=== PATIENT | male | born 2000 | race Asian ===

== ENCOUNTER 2019-03-11 14:51 | Emergency (ER) | payer OTHER ==
--- NOTE | 2019-03-11 16:37 | ED ---
Abdominal Pain/Male - HPI Summary HPI Summary: Pt is a 19 y/o M presenting to the ED with a chief complaint of LLQ abd pain first onset about 2 days ago that is worsened with movement. He reports some nausea. He denies diarrhea, constipation, fevers, or chills. Hx appendectomy when he was 8, and he denies hx of diverticulitis. - History of Current Complaint Chief Complaint: EDAbdPain Stated Complaint: LT SIDE ABD PAIN PER PT Time Seen by Provider: 03/11/19 16:17 Hx Obtained From: Patient Onset/Duration: Gradual Onset, Lasting Days, Still Present Timing: Constant, Lasting Days Severity Initially: Moderate Severity Currently: Moderate Pain Intensity: 7 Pain Scale Used: 0-10 Numeric Location: Discrete At: LLQ Radiates: No Aggravating Factor(s): Movement Alleviating Factor(s): Nothing Associated Signs And Symptoms: Negative: Fever, Constipation, Diarrhea - Allergies/Home Medications Allergies/Adverse Reactions: Allergies Allergy/AdvReac Type Severity Reaction Status Date / Time No Known Allergies Allergy Verified 03/11/19 16:19 PMH/Surg Hx/FS Hx/Imm Hx Previously Healthy: Yes Endocrine/Hematology History: Denies: Hx Diabetes GI History: Denies: Hx Diverticulosis Infectious Disease History: No Infectious Disease History: Denies: Traveled Outside the [place] in Last 30 Days - Family History Known Family History: Negative: Renal Disease - Social History Alcohol Use: Weekly Alcohol Amount: 2-3 times weekly Hx Substance Use: No Substance Use Type: Reports: None Hx Tobacco Use: No Smoking Status (MU): Never Smoked Tobacco Review of Systems Negative: Fever, Chills Positive: Abdominal Pain, Nausea. Negative: Diarrhea, Other - constipation All Other Systems Reviewed And Are Negative: Yes Physical Exam - Summary Physical Exam Summary: GENERAL: Patient is a well-developed and nourished male who is lying comfortable in the stretcher. Patient is not in any acute respiratory distress. HEAD AND FACE: Normocephalic EYES: PERRLA, EOMI x 2. EARS: Hearing grossly intact. MOUTH: Oropharynx within normal limits. NECK: Supple, trachea is midline, no adenopathy, no JVD, no carotid bruit. CHEST: Symmetric, no tenderness at palpation LUNGS: Clear to auscultation bilaterally. No wheezing or crackles. CVS: Regular rate and rhythm, S1 and S2 present, no murmurs or gallops appreciated. ABDOMEN: Tender to palpation in the LUQ and left mid quadrant. Bowel sounds are normal. No abnormal abdominal pulsations. No masses or hernias. EXTREMITIES: Full ROM in all major joints, no edema, no cyanosis or clubbing. NEURO: Alert and oriented x 3. No acute neurological deficits. Speech is normal and follows commands. SKIN: Dry and warm Triage Information Reviewed: Yes Vital Signs On Initial Exam: Initial Vitals Temp Pulse Resp BP Pulse Ox 97.4 F 74 18 148/107 97 03/11/19 14:58 03/11/19 14:58 03/11/19 14:58 03/11/19 14:58 03/11/19 14:58 Vital Signs Reviewed: Yes Diagnostics - Vital Signs Vital Signs Temp Pulse Resp BP Pulse Ox 03/11/19 16:21 72 156/85 98 03/11/19 16:20 87 98 03/11/19 14:58 97.4 F 74 18 148/107 97 - Laboratory Result Diagrams: 03/11/19 16:25 03/11/19 16:25 Lab Statement: Any lab studies that have been ordered have been reviewed, and results considered in the medical decision making process. - CT CT abd/pelv CT Interpretation Completed By: Radiologist Summary of CT Findings: Appearance is consistent with mild distal colitis as well as questionable distention of the mesenteric root compatible with a "comb sign". An infectious or inflammatory etiology is considered most likely. ED physician has reviewed this report. Re-Evaluation - Re-Evaluation 1st re-eval Re-Evaluation Time: 18:22 Change: Improved Comment: I spoke with the patient who states he is feeling better and is agreeable with going home. Abdominal Pain Male Course/Dx - Course Course Of Treatment: Pt is a 19 y/o M presenting to the ED with a chief complaint of abd pain in her LLQ that first came on 2 days ago. He reports some nausea. He denies diarrhea, constipation, fevers, or chills. Hx appendectomy when he was 8, and he denies hx of diverticulitis. On exam, the pt is tender to palpation in the LUQ and left mid quadrant. There are no masses or hernias. Pt's lab work is normal. CT of abd/pelv shows: Appearance is consistent with mild distal colitis as well as questionable distention of the mesenteric root compatible with a "comb sign". An infectious or inflammatory etiology is considered most likely. The pt will be d/c'ed with a dx of Colitis, given his first dose of Abx in the ED, and be sent home with prescriptions. I discussed results with patient, and he reports feeling better. He is hemodynamically stable and safe for discharge. Strict return precautions given and he will otherwise follow up with his PCP and his GI doctor. - Diagnoses Provider Diagnoses: Colitis Discharge - Sign-Out/Discharge Documenting (check all that apply): Patient Departure Patient Received Moderate/Deep Sedation with Procedure: No - Discharge Plan Condition: Stable Disposition: HOME Prescriptions: Ciprofloxacin TAB* [Cipro 500 MG TAB*] 500 mg PO BID 7 Days #14 tab Ibuprofen TAB* [Motrin TAB* 800 MG] 800 mg PO Q8H PRN #20 tab PRN Reason: Pain metroNIDAZOLE [Flagyl 500 MG TAB] 500 mg PO TID #21 tab Referrals: [facility] [Outside] Jaime Vallecillo MD [Medical Doctor] - Additional Instructions: Take your prescribed medications as instructed. Please follow up with your primary care provider within the next 1-3 days. Also , follow up with Dr. Vallecillo of gastroenterology within the next 1-3 days. Return to the emergency department with any new or worsening symptoms. - Billing Disposition and Condition Condition: STABLE Disposition: Home - Attestation Statements Document Initiated by Edie: Yes Documenting Scribe: Rosa Schaffer Provider For Whom Edie is Documenting (Include Credential): Blake Putnam MD. Scribe Attestation: Rosa Henry scribed for Blake Putnam MD. on 03/11/19 at 2005. Scribe Documentation Reviewed: Yes Provider Attestation: The documentation as recorded by the Rosa laureano accurately reflects the service I personally performed and the decisions made by , Martha Putnam MD. Status of Scribe Document: Viewed
[2019-03-11 16:38] LABS: ABS Eosinophils 0.3 10^3/ul (0-0.6); ABS Lymphocytes 1.4 10^3/ul (1.0-4.8); ABS Monocytes 0.5 10^3/ul (0-0.8); ABS Neutrophils 4.5 10^3/ul (1.5-7.7); Eosinophil % 4.1 %; Hematocrit 46 % (42-52); Hemoglobin 15.8 g/dL (14.0-18.0); Lymphocyte % 21.2 %; Mean Corpuscular HGB Conc 34 g/dL (31-36); Mean Corpuscular Hemoglobin 30 pg (27-31); Mean Corpuscular Volume 88 fL (80-94); Mean Platelet Volume 7.7 fL (7.4-10.4); Nucleated Red Blood Cells % 0.1; Platelet Count 232 10^3/uL (150-450); Red Blood Count 5.26 10^6 /uL (4.18-5.48); Red Cell Distribution Width 13 % (10.5-15); White Blood Count 6.7 10^3/uL (3.5-10.8)
[2019-03-11] MEDS ORDERED: NS 0.9% 1000 ML** 1,000 ML IV ONE (16:40)
[2019-03-11] MEDS ORDERED: Ketorolac INJ* 30 MG/ML 1 ML VIAL IV PUSH ONE (16:40)
[2019-03-11] MEDS ORDERED: Ondansetron INJ* 2 MG/ML VIAL IV ONE (16:40)
[2019-03-11 16:46] LABS: Urine Appearance Clear; Urine Bilirubin Negative (Negative); Urine Blood Negative (Negative); Urine Color Yellow; Urine Glucose Negative (Negative); Urine Ketones Negative (Negative); Urine Nitrite Negative (Negative); Urine Protein Negative (Negative); Urine Specific Gravity 1.023 (1.010-1.030); Urine Urobilinogen Negative (Negative)
[2019-03-11 16:52] LABS: ALT 39 U/L (7-52); AST 25 U/L (13-39); Albumin 5.1 g/dL (3.2-5.2); Albumin/Globulin Ratio 1.8 (1-3); Alkaline Phosphatase 68 U/L (34-104); Amylase 55 U/L (29-103); Anion Gap 9 mmol/L (2-11); BUN/Creatinine Ratio 16.2 (8-20); Blood Urea Nitrogen 16 mg/dL (6-24); CO2 Carbon Dioxide 29 mmol/L (22-32); Calcium 10.3 mg/dL (8.6-10.3); Chloride 100 mmol/L (101-111); EGFR African American 115.5 (>60); EGFR Non-African American 95.4 (>60); Globulin 2.9 g/dL (2-4); Glucose 93 mg/dL (70-100); Potassium 4.3 mmol/L (3.5-5.0); Sodium 138 mmol/L (135-145)
[2019-03-11] MEDS ORDERED: Iohexol 300* (CONTRAST) 10 ML SDV IV ONE (16:55)
[2019-03-11] MEDS ORDERED: metroNIDAZOLE * 500 MG TABLET PO ONE (18:17)
[2019-03-11] MEDS ORDERED: Ciprofloxacin TAB* 500 MG PO ONE (18:17)
[2019-03-11] MEDS ORDERED: Dexamethasone IV* 4 MG/ML 1 ML (4 MG) IV SLOW PU ONE (18:17)
[2019-03-11 18:54] VITALS: BP 157/86
== END 2019-03-11 18:55 | disposition home or self-care (01) ==
LOC: ED 14:51
DX: K52.9 Noninfective gastroenteritis and colitis, unspecified (principal); R11.0 Nausea
CPT/HCPCS: 36415; 74177; 80053; 81003; 82150; 83605; 83690; 85025; 86140; 96361; 96374; 96375; 99283; A9270-GY; J1100; J1885; J2405; Q9967